=== PATIENT | male | born 1995 | race African-American/Black ===

== ENCOUNTER 2016-08-08 17:54 | Emergency (ER) | payer MEDICAID ==
[~2016-08-08] VITALS: Ht 170.2 cm; Wt 67.0 kg
[2016-08-08] MEDS ORDERED: TETANUS, DIPHTHERIA, PERTUSSIS VAC/PF 0.5ML (>7YR OLD) IM ONE (18:30)
[2016-08-08] MEDS ORDERED: BACITRACIN ZINC OINT UDPKT TOP ONE (18:30)
[2016-08-08] MEDS ORDERED: LIDOCAINE/EPINEPHR/TETRACAINE 3ML TP ONE (19:30)
[2016-08-08 19:39] VITALS: BP 133/79
== END 2016-08-08 21:46 | disposition home or self-care (01) ==
LOC: ER 19:55
DX: S61.411A Laceration without foreign body of right hand, initial encounter (principal); J45.909 Unspecified asthma, uncomplicated; W54.0XXA Bitten by dog, initial encounter; Y93.89 Activity, other specified; Y99.8 Other external cause status; Y92.89 Other specified places as the place of occurrence of the external cause
CPT/HCPCS: 12001; 73130; 90471; 90715; 99284; X7700; Z7610